=== PATIENT | female | born 1995 | race Caucasian/White ===

== ENCOUNTER 2017-02-14 02:44 | Emergency (ER) | payer OTHER ==
[~2017-02-14] VITALS: Ht 167.6 cm; Wt 70.0 kg
[2017-02-14 02:46] VITALS: BP 128/78; PULSE 78; RESP 20; TEMP 98.8; O2SAT 100
[2017-02-14] MEDS ORDERED: SODIUM CHLOR 0.9% 1000 ML INJ 1,000 ML IV ONE (05:31)
--- NOTE | 2017-02-14 05:33 | PD ---
HPI Chief Complaint: Related Problem Time Seen by Provider: 05:30 Travel History International Travel<30 days: No Contact w/Intl Traveler<30days: No Traveled to known affect area: No History of Present Illness HPI The patient is a 21 year old female at 13 weeks gestation who presents to the [facility] emergency department with a history of vomiting that recurred on Monday. She reports that throughout the up until a week ago she had had morning sickness, however she thought that it was improving until yesterday. Yesterday she had n/v x7. She also had diarrhea x1. She denies any blood in her emesis or blood in her stool. She had some vaginal spotting with cramping today. She had an Ultrasound at 10 and 1/2 weeks that confirmed an IUP and FH activity. She is unsure of her blood type. On review of systems otherwise she denies having any known recent fevers, cough, congestion, neck pain, chest pain, shortness of breath, urinary symptoms, or neurologic symptoms. LMP: beginning of November. [facility] Past Medical History Narrative Medical The patient's past medical history is significant for PCOS, history of anemia. Medical History: Denies Significant Hx Diminished Hearing: No Tetanus Vaccination: Unknown Influenza Vaccination: No ?: LMP: 13 WEEKS PREG/ 11/18/16 Past Surgical History Surgical History: No Previous Surgery Social History Alcohol Use: No Tobacco Use: No Substance Use: No Allergies-Medications (Allergen,Severity, Reaction): Coded Allergies: No Known Allergies (Unverified , 02/14/17) Reported Meds & Prescriptions Reported Meds & Active Scripts Active Zofran Odt (Ondansetron Odt) 4 Mg Tab 4 Mg SL Q6HR PRN Review of Systems Except as stated in HPI: all other systems reviewed are Neg General / Constitutional: No: Fever Eyes: No: Visual changes HENT: No: Headaches Cardiovascular: No: Chest Pain or Discomfort Respiratory: No: Shortness of Breath Gastrointestinal: Positive: Nausea, Vomiting, Diarrhea, Changes in Bowel Habits , No: Abdominal Pain, Hematemesis, Hematochezia, Indigestion Genitourinary: No: Dysuria Musculoskeletal: No: Pain Skin: No Rash Neurologic: No: Weakness Psychiatric: No: Depression Endocrine: No: Polydipsia Hematologic/Lymphatic: No: Easy Bruising Physical Exam Narrative General: The patient is a well-developed well-nourished female in no acute distress. Head and Neck exam: Head is normocephalic atraumatic. Eyes: Pupils are equal round and reactive to light. Nose: Midline septum with pink mucous membranes Mouth: Dentition unremarkable. Moist mucus membranes. Posterior oropharynx is not erythematous. No tonsillar hypertrophy. Uvula midline. Airway patent. Neck: No palpable lymphadenopathy. No nuchal rigidity. No thyromegaly. Cardiovascular: Regular rate and rhythm without murmurs, gallops, or rubs. Lungs: Clear to auscultation bilaterally. No wheezes, rhonchi, or rales. Abdomen: Soft, without tenderness to palpation in all 4 quadrants of the abdomen. No guarding, rebound, or rigidity. Normal bowel sounds are audible. No tenderness on palpation of McBurney's point. Extremities: No clubbing, cyanosis, or edema. No calf tenderness on palpation. Back: No costovertebral angle tenderness to palpation. Neurologic Exam: Grossly nonfocal. Skin Exam: No rash noted. Intact skin that is warm and dry. Gynecologic exam: The patient was placed in the dorsal lithotomy position. Her external genitalia were examined. She had no evidence of rash or lesions. The speculum was placed into her vagina and the cervix was identified. She had a physiologic appearing clear white discharge. No cervical friability. On Bimanual exam: she has no cervical motion tenderness. Her cervix is closed. No adnexal tenderness or prominence noted on palpation. No uterine tenderness on palpation, however she does have palpable uterine enlargement. Data Data Last Documented VS Vital Signs Date Time Temp Pulse Resp B/P (MAP) Pulse Ox O2 Delivery O2 Flow Rate FiO2 02/14/17 02:46 98.8 78 20 128/78 (95) 100 Orders Orders Beta Hcg (Quant/Titer) (02/14/17 05:31) Complete Blood Count With Diff (02/14/17 05:31) Comprehensive Metabolic Panel (02/14/17 05:31) Gc And Chlamydia Pcr (02/14/17 05:31) Complete Rh (02/14/17 05:31) Wet Prep Profile (02/14/17 05:31) Urinalysis - C+S If Indicated (02/14/17 05:31) Iv Access Insert/Monitor (02/14/17 05:31) Sodium Chlor 0.9% 1000 Ml Inj (Ns 1000 M (02/14/17 05:31) Ondansetron Inj (Zofran Inj) (02/14/17 05:45) Ed Poc Ultrasound (02/14/17 06:47) Labs Laboratory Tests Test 02/14/17 05:30 02/14/17 05:40 White Blood Count 13.1 TH/MM3 Red Blood Count 4.15 MIL/MM3 Hemoglobin 12.2 GM/DL Hematocrit 35.2 % Mean Corpuscular Volume 84.6 FL Mean Corpuscular Hemoglobin 29.3 PG Mean Corpuscular Hemoglobin Concent 34.7 % Red Cell Distribution Width 13.3 % Platelet Count 233 TH/MM3 Mean Platelet Volume 9.1 FL Neutrophils (%) (Auto) 64.0 % Lymphocytes (%) (Auto) 26.9 % Monocytes (%) (Auto) 7.6 % Eosinophils (%) (Auto) 1.1 % Basophils (%) (Auto) 0.4 % Neutrophils # (Auto) 8.4 TH/MM3 Lymphocytes # (Auto) 3.5 TH/MM3 Monocytes # (Auto) 1.0 TH/MM3 Eosinophils # (Auto) 0.1 TH/MM3 Basophils # (Auto) 0.0 TH/MM3 CBC Comment DIFF FINAL Differential Comment Urine Color YELLOW Urine Turbidity CLEAR Urine pH 5.5 Urine Specific [place] 1.025 Urine Protein TRACE mg/dL Urine Glucose (UA) NEG mg/dL Urine Ketones TRACE mg/dL Urine Occult Blood NEG Urine Nitrite NEG Urine Bilirubin NEG Urine Urobilinogen LESS THAN 2.0 MG/DL Urine Leukocyte Esterase NEG Urine RBC 1 /hpf Urine WBC 2 /hpf Urine Squamous Epithelial Cells 3 /hpf Urine Mucus FEW /lpf Microscopic Urinalysis Comment CULT NOT INDICATED Blood Urea Nitrogen 6 MG/DL Creatinine 0.57 MG/DL Random Glucose 73 MG/DL Total Protein 9.1 GM/DL Albumin 4.0 GM/DL Calcium Level 9.0 MG/DL Alkaline Phosphatase 67 U/L Aspartate Amino Transf (AST/SGOT) 59 U/L Alanine Aminotransferase (ALT/SGPT) 172 U/L Total Bilirubin 0.8 MG/DL Sodium Level 137 MEQ/L Potassium Level 3.6 MEQ/L Chloride Level 102 MEQ/L Carbon Dioxide Level 26.1 MEQ/L Anion Gap 9 MEQ/L Estimat Glomerular Filtration Rate 135 ML/MIN Human Chorionic Gonadotropin, Quant 98198 MIU/ML Clue Cells (Wet Prep) NONE SEEN Vaginal Trichomonas (Wet Prep) NONE SEEN Vaginal Yeast (Wet Prep) NONE SEEN MDM Medical Decision Making Medical Screen Exam Complete: Yes Emergency Medical Condition: Yes Medical Record Reviewed: Yes Differential Diagnosis Ectopic , versus ovarian cyst, versus subchorionic hemorrhage, versus postcoital bleeding, versus dehydration Narrative Course During the course of the patients emergency department visit, the patients history, examination, and differential diagnosis were reviewed with the patient. The patient was placed on a optical engineering manager with oximetry and frequent blood pressure monitoring. The patient had IV access obtained and blood work sent for analysis. The patient was initially provided normal saline 1 L IV fluid bolus, Zofran 4 mg IV. The patients laboratory studies were reviewed and remarkable for a white count of 13.1, hemoglobin 12.2, platelets 233 with a normal differential, CMP is remarkable for a glucose of 73, BUN 6, AST 59, ALT 172, total protein 9.1, quantitative beta hCG is 63,300, urinalysis shows trace ketones otherwise unremarkable, wet prep is negative. Blood type is O+. A bedside ultrasound was done by me and revealed heart activity rate of 145, active fetus on examination. No other acute abnormality. The patient will be discharged home with a prescription for Zofran for nausea. She has a follow-up appointment scheduled with her in flight crew member for February 28. The patient is resting comfortably and feels better, is alert and in no distress. The patients results and examination findings were discussed with the patient. The repeat examination is unremarkable and benign. The history, exam, diagnostic testing, and current condition do not suggest any significant pathology to warrant further testing, continued ED treatment, admission, or surgical evaluation at this point. The vital signs have been stable. The patient does not have uncontrollable pain, intractable vomiting, or other significant symptoms. The patient's condition is stable and appropriate for discharge. The patient will pursue further outpatient evaluation with a primary care physician or other designated or consulting physician as indicated in the discharge instructions. The patient expressed understanding and was agreeable with this plan. Diagnosis Primary Impression: Nausea/vomiting in Additional Impressions: Threatened miscarriage Elevated liver enzymes Referrals: Natalie Dickson MD 2 days Mail Officer 2 days Patient Instructions: General Instructions, Nausea and Vomiting in ( ED), Threatened Miscarriage (ED) Additional Instructions: The patient is instructed on bed rest and pelvic rest. She is instructed on importance of following up with an ENVELOPE MACHINE OPERATOR as soon as possible. The patient is noted to have on examination and elevated liver enzymes. She denies being aware of this from the past. She is given a copy of her liver function tests for follow-up with her public health aides teacher. Med/Other Pt SpecificInfo: Prescription(s) given Scripts Ondansetron Odt (Zofran Odt) 4 Mg Tab 4 MG SL Q6HR Y for Nausea/Vomiting, #7 TAB 0 Refills Prov: Ida Deluna MD 02/14/17 Disposition: 01 DISCHARGE HOME Condition: Stable Ida Deluna MD Feb 14, 2017 05:33
[2017-02-14] MEDS ORDERED: ONDANSETRON HCL 4 MG/2 ML VIAL IVP ONE (05:45)
[2017-02-14] MEDS ORDERED: ZOFR4TAB3 SL ×2 (05:51→07:05)
[2017-02-14 06:06] LABS: AUTOMATED NEUTROPHIL # 8.4 TH/MM3 (1.8-7.7); BASOPHIL % 0.4 % (0.0-2.0); EOSINOPHIL # 0.1 TH/MM3 (0-0.4); EOSINOPHIL % 1.1 % (0.0-4.0); HEMATOCRIT 35.2 % (35.0-46.0); HEMO FLAGS DIFF FINAL; LYMPH % 26.9 % (9.0-44.0); LYMPHOCYTE # 3.5 TH/MM3 (1.0-4.8); MEAN CELL VOLUME 84.6 FL (80.0-100.0); MEAN CORPUSCULAR HEMOGLOBIN 29.3 PG (27.0-34.0); MEAN CORPUSCULAR HGB CONC 34.7 % (32.0-36.0); MONO % 7.6 % (0.0-8.0); PLATELET COUNT 233 TH/MM3 (150-450); RED BLOOD COUNT 4.15 MIL/MM3 (4.00-5.30); RED CELL DISTRIBUTION WIDTH 13.3 % (11.6-17.2); WHITE BLOOD COUNT 13.1 TH/MM3 (4.0-11.0)
[2017-02-14 06:24] LABS: BLOOD, URINE NEG (NEG); COMMENT (UR) CULT NOT INDICATED; CULTURE IF INDICATED CULT NOT INDICATED; GLUCOSE,URINE NEG (NEG); KETONE, URINE TRACE mg/dL (NEG); MUCUS URINE FEW /lpf (OCC); NITRITE,URINE NEG (NEG); PH, URINE 5.5 (5.0-8.5); SQUAMOUS EPITHELIAL CELL URINE 3 /hpf (0-5); URINE COLOR YELLOW (YELLW/STRAW)
[2017-02-14 06:29] LABS: ANION GAP 9 MEQ/L (5-15); AST (GOT) 59 U/L (16-38); BICARBONATE 26.1 MEQ/L (21.0-32.0); BLOOD UREA NITROGEN 6 MG/DL (7-18); CHLORIDE 102 MEQ/L (98-107); GLOMERULAR FILTRATION RATE 135 ML/MIN (>89); POTASSIUM 3.6 MEQ/L (3.5-5.1); SODIUM (NA) 137 MEQ/L (136-145)
[2017-02-14 06:30] LABS: ALT (GPT) 172 U/L (9-42)
[2017-02-14 06:46] LABS: ALKALINE PHOSPHATASE 67 U/L (45-117); BETA HCG QUANT 63300 MIU/ML (0-5); TOTAL BILIRUBIN ADULT 0.8 MG/DL (0.2-1.0)
[2017-02-14 07:28] VITALS: BP 124/72
[2017-02-14 12:03] LABS: CHLAMYDIA PCR NOT DETECTED (NOT DETECT); NEISSERIA PCR NOT DETECTED (NOT DETECT)
== END 2017-02-14 07:28 | disposition home or self-care (01) ==
LOC: NEPC 02:44
DX: O21.9 Vomiting of pregnancy, unspecified (principal); O20.0 Threatened abortion; O26.891 Other specified pregnancy related conditions, first trimester; R19.7 Diarrhea, unspecified; R74.8 Abnormal levels of other serum enzymes; O99.281 Endocrine, nutritional and metabolic diseases complicating pregnancy, first trimester; E28.2 Polycystic ovarian syndrome; Z3A.13 13 weeks gestation of pregnancy
CPT/HCPCS: 80053; 81001; 84702; 85025; 86901; 87210; 87491; 87591; 96361; 96374; 99285; J2405; J7030

== ENCOUNTER 2017-07-27 14:01 | Inpatient (IN) | payer OTHER ==
[~2017-07-27] VITALS: Ht 165.1 cm; Wt 85.0 kg
[2017-07-27] VITALS (8 sets, daily range): BP systolic 115–134; BP diastolic 70–93; PULSE 69–90; RESP 15–18; TEMP 98.3–98.4
[~2017-07-27 14:01] MED LIST: METR1TAB76 PO; ZOFR4TAB3 SL
--- NOTE | 2017-07-27 14:52 | PD ---
HPI Chief Complaint Contractions and lower back pain Date Seen: July 27, 2017 Time Seen: 14:38 Travel History International Travel<30 Days: No Contact w/Intl Traveler<30Days: No History of Present Illness HPI Patient is a 22-year-old female G one P0 at 36/4 weeks gestation presenting to the OB triage due to complaints of contractions and lower abdominal pain. Patient stated that contractions started last night around 8 PM and they have gotten more intense and closer in frequency, contractions currently are occurring every 5 minutes. Denies any loss of fluid or vaginal bleeding. Patient reports she is GBS negative. Endorses movement. Patient also reports that she has had nausea and vomiting x10 this morning. Denies any fevers , chills, chest pain, shortness of breath, lower extremity swelling or vision issues. Patient follows with Dr. Rodriges. Weeks Gestation: 36 Para: 0 : 1 Last Menstrual Period: Nov 13, 2016 Miscarriage: 0 : 0 History Past Medical History Narrative Medical Depression Anxiety Obstetric History Obstetric History Patient reports she had a threatened earlier this year but everything was found to be okay No complication thus far with this Denies history of STDs. Past Surgical History Surgical History: No Previous Surgery Family History Narrative Family History CHF-paternal grandmother Social History Alcohol Use: No Tobacco Use: No Substance Abuse: Yes (Patient reports that she has used marijuana during the on and off when her nausea is very severe, about 1 g/week. Denies other illicit drug use. ) Allergies-Medications (Allergen,Severity, Reaction): Coded Allergies: No Known Allergies (Unverified , 02/14/17) Home Meds Active Scripts Metronidazole (Metronidazole) 500 Mg Tab, 500 MG PO BID for Infection for 7 Days , #14 TAB 0 Refills Prov:May Jaimes CNM 03/07/17 Ondansetron Odt (Zofran Odt) 4 Mg Tab, 4 MG SL Q6HR Y for Nausea/Vomiting, #7 TAB 0 Refills Prov:Ida Deluna MD 02/14/17 Ondansetron Odt (Zofran Odt) 4 Mg Tab, 4 MG SL Q6HR Y for Nausea/Vomiting, #7 TAB 0 Refills Prov:Ida Deluna MD 02/14/17 Narrative Medication Citalopram 25 mg daily vitamins Review of Systems Except as stated in HPI: all other systems reviewed are Neg (Per HPI) Physical Exam Vital Signs Date Time Temp Pulse Resp B/P (MAP) Pulse Ox O2 Delivery O2 Flow Rate FiO2 07/27/17 14:20 98.4 Narrative GENERAL: Well-nourished, well-developed patient. SKIN: Warm and dry. HEAD: Normocephalic and atraumatic. EYES: No scleral icterus. No injection or drainage. ENT: No nasal drainage noted. Mucous membranes pink. Airway patent. NECK: Supple, trachea midline. No JVD. CARDIOVASCULAR: Regular rate and rhythm without murmurs, gallops, or rubs. RESPIRATORY: Breath sounds equal bilaterally. No accessory muscle use. ABDOMEN/GI: Abdomen soft, non-tender, bowel sounds present, no rebound, no guarding Gravid to 36 weeks size GENITOURINARY: External Genitalia: intact and normal in appearance Cervix: Midposition Dilatation: 3-4 Effacement:40 Station: -2 Membranes: Bulging Uterine Contractions: [-] FHT's: Category:1 Baseline: 140 Reactive:yes Variability: moderate Decels: none EXTREMITIES: No cyanosis or edema. BACK: Nontender without obvious deformity. No CVA tenderness. NEUROLOGICAL: Awake and alert. Motor and sensory grossly within normal limits. Five out of 5 muscle strength in all muscle groups. Normal speech. Data Data Vital Signs Reviewed: Yes Orders Orders Vital Signs (Adult) .ON ADMISSION (07/27/17 14:14) ^ Labor Status (07/27/17 14:14) Urinalysis - C+S If Indicated (07/27/17 14:14) ^ Non Stress Test (07/27/17 14:14) Group B Strep: Negative MDM Medical Record Reviewed: Yes Plan Patient is a 22-year-old female G one P0 at 36/4 weeks gestation presenting to the OB triage due to complaints of contractions and lower abdominal pain. IUP at 36/4 weeks gestation 1. Monitor FHT for at least 20min 2. Reassess cervical change in 1-2hr to evaluate for labor 3. clear liquids 3. category 1, NST reassuring On repeat cervical check: 4-5cm dilated and 80% effaced patient will be admitted to L&D for labor DW Leonel Mclain MD, R1 July 27, 2017 14:52
[2017-07-27] MEDS ORDERED: LACTATED RINGER'S 1000 ML INJ 1,000 ML IV PRN (15:10)
[2017-07-27] MEDS ORDERED: LACTATED RINGER'S 1000 ML INJ 1,000 ML IV SCH (15:10)
--- NOTE | 2017-07-27 15:12 | HHI.HP ---
History & Physical H&P HPI Chief Complaint Contractions and lower back pain Date Seen: July 27, 2017 Time Seen: 14:38 Travel History International Travel<30 Days: No Contact w/Intl Traveler<30Days: No History of Present Illness HPI Patient is a 22-year-old female G one P0 at 36/4 weeks gestation presenting to the OB triage due to complaints of contractions and lower abdominal pain. Patient stated that contractions started last night around 8 PM and they have gotten more intense and closer in frequency, contractions currently are occurring every 5 minutes. Denies any loss of fluid or vaginal bleeding. Patient reports she is GBS negative. Endorses movement. Patient also reports that she has had nausea and vomiting x10 this morning. Denies any fevers , chills, chest pain, shortness of breath, lower extremity swelling or vision issues. Patient follows with Dr. Rodriges. Weeks Gestation: 36 Para: 0 : 1 Last Menstrual Period: Nov 13, 2016 Miscarriage: 0 : 0 History (Limited) History Past Medical History Narrative Medical Depression Anxiety Obstetric History Obstetric History Patient reports she had a threatened earlier this year but everything was found to be okay No complication thus far with this Denies history of STDs. Past Surgical History Surgical History: No Previous Surgery Family History Narrative Family History CHF-paternal grandmother Social History Alcohol Use: No Tobacco Use: No Substance Abuse: Yes (Patient reports that she has used marijuana during the on and off when her nausea is very severe, about 1 g/week. Denies other illicit drug use. ) Allergies-Medications Allergies-Medications (Allergen,Severity, Reaction): Coded Allergies: No Known Allergies (Unverified , 02/14/17) Home Meds Active Scripts Metronidazole (Metronidazole) 500 Mg Tab, 500 MG PO BID for Infection for 7 Days , #14 TAB 0 Refills Prov:May Jaimes CNM 03/07/17 Ondansetron Odt (Zofran Odt) 4 Mg Tab, 4 MG SL Q6HR Y for Nausea/Vomiting, #7 TAB 0 Refills Prov:Ida Deluna MD 02/14/17 Ondansetron Odt (Zofran Odt) 4 Mg Tab, 4 MG SL Q6HR Y for Nausea/Vomiting, #7 TAB 0 Refills Prov:Ida Deluna MD 02/14/17 Narrative Medication Citalopram 25 mg daily vitamins ROS Review of Systems Except as stated in HPI: all other systems reviewed are Neg (Per HPI) Physical Exam Physical Exam Vital Signs Date Time Temp Pulse Resp B/P (MAP) Pulse Ox O2 Delivery O2 Flow Rate FiO2 07/27/17 14:20 98.4 Narrative GENERAL: Well-nourished, well-developed patient. SKIN: Warm and dry. HEAD: Normocephalic and atraumatic. EYES: No scleral icterus. No injection or drainage. ENT: No nasal drainage noted. Mucous membranes pink. Airway patent. NECK: Supple, trachea midline. No JVD. CARDIOVASCULAR: Regular rate and rhythm without murmurs, gallops, or rubs. RESPIRATORY: Breath sounds equal bilaterally. No accessory muscle use. ABDOMEN/GI: Abdomen soft, non-tender, bowel sounds present, no rebound, no guarding Gravid to 36 weeks size GENITOURINARY: External Genitalia: intact and normal in appearance Cervix: Midposition Dilatation: 3-4 Effacement:40 Station: -2 Membranes: Bulging Uterine Contractions: [-] FHT's: Category:1 Baseline: 140 Reactive:yes Variability: moderate Decels: none EXTREMITIES: No cyanosis or edema. BACK: Nontender without obvious deformity. No CVA tenderness. NEUROLOGICAL: Awake and alert. Motor and sensory grossly within normal limits. Five out of 5 muscle strength in all muscle groups. Normal speech. Data Data Data Vital Signs Reviewed: Yes Orders Orders Vital Signs (Adult) .ON ADMISSION (07/27/17 14:14) ^ Labor Status (07/27/17 14:14) Urinalysis - C+S If Indicated (07/27/17 14:14) ^ Non Stress Test (07/27/17 14:14) Group B Strep: Negative MDM MDM Medical Record Reviewed: Yes Plan Patient is a 22-year-old female G one P0 at 36/4 weeks gestation presenting to the OB triage due to complaints of contractions and lower abdominal pain. IUP at 36/4 weeks gestation 1. Monitor FHT for at least 20min 2. Reassess cervical change in 1-2hr to evaluate for labor 3. clear liquids 3. category 1, NST reassuring On repeat cervical check: 4-5cm dilated and 80% effaced patient will be admitted to &D for labor DW Leonel Mclain MD, R1 July 27, 2017 15:12
[2017-07-27] MEDS ORDERED: OXYTOCIN 30 UNITS-500ML PREMIX 500 ML IV ONE (15:15)
[2017-07-27] MEDS ORDERED: CITRIC ACID-SODIUM CITRATE LIQ 30 ML UDC PO SCH (15:15)
[2017-07-27] MEDS ORDERED: LIDOCAINE HCL 1% 50 ML VIAL I-DERMAL PRN (15:15)
[2017-07-27] MEDS ORDERED: SODIUM CHLORID 0.9% 500 ML INJ 500 ML IV PRN (15:15)
[2017-07-27] MEDS ORDERED: ONDANSETRON HCL 4 MG/2 ML VIAL IV PUSH PRN (15:15)
[2017-07-27] MEDS ORDERED: MINERAL OIL 10 ML VIAL TOPICAL PRN (15:15)
[2017-07-27] MEDS ORDERED: LIDOCAINE HCL 1% 50 ML VIAL INFIL PRN (15:15)
[2017-07-27] MEDS ORDERED: SODIUM CHLOR 0.9% 1000 ML INJ 1,000 ML IV PRN (15:30)
[2017-07-27] MEDS ORDERED: CELE20TA PO (15:46)
[2017-07-27] MEDS ORDERED: TRICTAB PO (15:46)
[2017-07-27 16:16] LABS: AUTOMATED NEUTROPHIL # 11.7 TH/MM3 (1.8-7.7); BASOPHIL # 0.1 TH/MM3 (0-0.2); BASOPHIL % 0.9 % (0.0-2.0); EOSINOPHIL # 0.1 TH/MM3 (0-0.4); EOSINOPHIL % 0.4 % (0.0-4.0); HEMATOCRIT 34.3 % (35.0-46.0); HEMOGLOBIN 11.6 GM/DL (11.6-15.3); LYMPHOCYTE # 2.8 TH/MM3 (1.0-4.8); MEAN CELL VOLUME 87.7 FL (80.0-100.0); MEAN CORPUSCULAR HEMOGLOBIN 29.6 PG (27.0-34.0); MEAN CORPUSCULAR HGB CONC 33.7 % (32.0-36.0); MONO % 6.5 % (0.0-8.0); NEUT % 74.2 % (16.0-70.0); PLATELET COUNT 252 TH/MM3 (150-450); RED BLOOD COUNT 3.91 MIL/MM3 (4.00-5.30); RED CELL DISTRIBUTION WIDTH 13.2 % (11.6-17.2); WHITE BLOOD COUNT 15.7 TH/MM3 (4.0-11.0)
[2017-07-27 16:24] LABS: AMORPHOUS SEDIMENT, URINE RARE; BACTERIA, URINE RARE /hpf; BILIRUBIN, URINE NEG (NEG); BLOOD, URINE NEG (NEG); GLUCOSE,URINE NEG (NEG); KETONE, URINE 10 mg/dL (NEG); NITRITE,URINE NEG (NEG); PH, URINE 6.5 (5.0-8.5); SQUAMOUS EPITHELIAL CELL URINE 19 /hpf (0-5); URINE COLOR LIGHT-YELLOW (YELLW/STRAW); URINE LEUKOCYTE ESTERASE LARGE (NEG)
--- NOTE | 2017-07-27 21:30 | HHI.PR ---
REPRESENTATIVE Note Note Pt was admitted earlier for PTL with cervical change per RN from 3 to 5. She has received fentanyl x2 for pain and zofran x1 for emesis. Since admission, pt has been cat 1 tracing. Ctx ceased. Cvx exam was just performed by PM RN and confirmed myself to be 3.5/90/-2. Given status and not laboring, pt advised that she will be d/c'd to home. Labor precautions reviewed. She will receive 2g IV rocephin prior to d/c for UTI. Melanie Durán MD July 27, 2017 21:30
[2017-07-27] MEDS ORDERED: cefTRIAXone 2,000 MG/NS 100 ML IV ONE ×2 (22:30)
== END 2017-07-27 23:45 | disposition home or self-care (01) | DRG 778 ==
LOC: HOBED 14:01 → H2EB 15:15
PROVIDERS: ADMIT Obstetrics & Gynecology; ATTEND Obstetrics & Gynecology
DX: O60.03 Preterm labor without delivery, third trimester (principal); F32.9 Major depressive disorder, single episode, unspecified; Z3A.36 36 weeks gestation of pregnancy; F41.9 Anxiety disorder, unspecified; O99.343 Other mental disorders complicating pregnancy, third trimester
CPT/HCPCS: 80307; 81001; 84112; 85025; 86900; 86901; 87086; G0481; J3010; J7120

== ENCOUNTER 2017-07-28 17:50 | Inpatient (IN) | payer OTHER ==
[2017-07-28] VITALS (49 sets, daily range): BP systolic 109–138; BP diastolic 62–96; PULSE 66–97; RESP 15–20; TEMP 98.1–98.6; O2SAT 98–100
[~2017-07-28] VITALS: Ht 165.1 cm; Wt 84.8 kg
[~2017-07-28 17:50] MED LIST changes: +CELE20TA PO; +DIPHTH/TETANUS/ACEL PERTUSSIS (BOOSTER) 0.5 ML VIAL/PFS IM ONE; +MEASLES, MUMPS, RUBELLA VACCINE 0.5 ML VIAL SQ ONE; -METR1TAB76 PO; +TRICTAB PO
[2017-07-28] MEDS ORDERED: LACTATED RINGER'S 1000 ML INJ 1,000 ML IV PRN (18:27)
[2017-07-28] MEDS ORDERED: LACTATED RINGER'S 1000 ML INJ 1,000 ML IV SCH (18:27)
--- NOTE | 2017-07-28 18:27 | PD ---
HPI Chief Complaint Contractions Date Seen: July 28, 2017 Time Seen: 18:23 Travel History International Travel<30 Days: No Contact w/Intl Traveler<30Days: No Known Affected Area: No History of Present Illness HPI 22-year-old who is at 36 weeks and 5 days comes in complaining of contractions. Patient to come in yesterday afternoon and was 3-4 cm and was admitted but after 9 hours patient experienced no cervical change in her contractions had disappeared and she was discharged home. Patient states her contractions had not ever truly gone away but had improved but noticed worsening around noon today associated with some vaginal discharge. Patient denies vaginal bleeding is been having good movement. Patient is group B strep negative Weeks Gestation: 36 Para: 0 : 1 History Past Medical History Medical History: Denies Significant Hx Past Surgical History Surgical History: No Previous Surgery Family History Family History: Negative Social History Alcohol Use: No Tobacco Use: No Substance Abuse: Yes (Marijuana use for nausea vomiting early in otherwise denies any additional illicit drug use) Allergies-Medications (Allergen,Severity, Reaction): Coded Allergies: No Known Allergies (Unverified , 02/14/17) Home Meds Active Scripts Ondansetron Odt (Zofran Odt) 4 Mg Tab, 4 MG SL Q6HR Y for Nausea/Vomiting, #7 TAB 0 Refills Prov:Ida Deluna MD 02/14/17 Ondansetron Odt (Zofran Odt) 4 Mg Tab, 4 MG SL Q6HR Y for Nausea/Vomiting, #7 TAB 0 Refills Prov:Ida Deluna MD 02/14/17 Reported Medications Citalopram (Celexa) 20 Mg Tab, 25 MG PO DAILY for Control Depression, #30 TAB 0 Refills 07/27/17 Vit-Ferrous Fumarate () 27 Mg Iron-1 Mg Tab, 1 TAB PO DAILY for Nutritional Supplement, #30 TAB 0 Refills 07/27/17 Discontinued Scripts Metronidazole (Metronidazole) 500 Mg Tab, 500 MG PO BID for Infection for 7 Days , #14 TAB 0 Refills Prov:May Jaimes CNM 03/07/17 Review of Systems Except as stated in HPI: all other systems reviewed are Neg Physical Exam Narrative GENERAL: Well-nourished, well-developed patient. SKIN: Warm and dry. HEAD: Normocephalic and atraumatic. EYES: No scleral icterus. No injection or drainage. ENT: No nasal drainage noted. Mucous membranes pink. Airway patent. NECK: Supple, trachea midline. No JVD. CARDIOVASCULAR: Regular rate and rhythm without murmurs, gallops, or rubs. RESPIRATORY: Breath sounds equal bilaterally. No accessory muscle use. ABDOMEN/GI: Abdomen soft, non-tender, bowel sounds present, no rebound, no guarding Gravid to [-36] weeks size Fundal Height: [-] GENITOURINARY: External Genitalia: intact and normal in appearance BUS glands: [-] Normal Cervix: [-] Anterior Dilatation: [-] 5 cm Effacement: [-] 100% Station: [-] -1 Presentation: [-] Vertex Membranes: [intact or ruptured] intact with bulging membranes Uterine Contractions: [-] Every 5-6 minute FHT's: Category: [-] 1 Baseline: [-] 140 Reactive: [-] Moderate Variability: [-] Moderate Decels: [-] Absent EXTREMITIES: No cyanosis or edema. BACK: Nontender without obvious deformity. No CVA tenderness. NEUROLOGICAL: Awake and alert. Motor and sensory grossly within normal limits. Five out of 5 muscle strength in all muscle groups. Normal speech. Data Data Vital Signs Reviewed: Yes Group B Strep: Negative [facility] Medical Record Reviewed: Yes Plan 22-year-old who is at 36-37 weeks gestation in active labor Admit to labor and delivery Patient desires epidural she is group B strep negative Diagnosis Diagnosis: Primary Impression: 36 weeks gestation of Additional Impression: Irregular uterine contractions Yanira Corley MD July 28, 2017 18:27
[2017-07-28] MEDS ORDERED: SODIUM CHLORID 0.9% 500 ML INJ 500 ML IV PRN (18:30)
[2017-07-28] MEDS ORDERED: LIDOCAINE HCL 1% 50 ML VIAL INFIL PRN (18:30)
[2017-07-28] MEDS ORDERED: LIDOCAINE HCL 1% 50 ML VIAL I-DERMAL PRN (18:30)
[2017-07-28] MEDS ORDERED: ONDANSETRON HCL 4 MG/2 ML VIAL IV PUSH PRN (18:30)
[2017-07-28] MEDS ORDERED: OXYTOCIN 30 UNITS-500ML PREMIX 500 ML IV ONE (18:30)
[2017-07-28] MEDS ORDERED: CITRIC ACID-SODIUM CITRATE LIQ 30 ML UDC PO SCH (18:30)
[2017-07-28] MEDS ORDERED: MINERAL OIL 10 ML VIAL TOPICAL PRN (18:30)
[2017-07-28] MEDS ORDERED: SODIUM CHLOR 0.9% 1000 ML INJ 1,000 ML IV PRN (18:47)
[2017-07-28 19:13] LABS: AUTOMATED NEUTROPHIL # 11.5 TH/MM3 (1.8-7.7); BASOPHIL % 0.3 % (0.0-2.0); EOSINOPHIL % 0.3 % (0.0-4.0); HEMATOCRIT 32.3 % (35.0-46.0); HEMOGLOBIN 11.2 GM/DL (11.6-15.3); LYMPH % 17.9 % (9.0-44.0); LYMPHOCYTE # 2.8 TH/MM3 (1.0-4.8); MEAN CELL VOLUME 87.8 FL (80.0-100.0); MEAN CORPUSCULAR HEMOGLOBIN 30.5 PG (27.0-34.0); MEAN CORPUSCULAR HGB CONC 34.8 % (32.0-36.0); MEAN PLATELET VOLUME 9.6 FL (7.0-11.0); MONO % 6.9 % (0.0-8.0); MONOCYTE # 1.1 TH/MM3 (0-0.9); NEUT % 74.6 % (16.0-70.0); PLATELET COUNT 249 TH/MM3 (150-450); RED BLOOD COUNT 3.68 MIL/MM3 (4.00-5.30); WHITE BLOOD COUNT 15.4 TH/MM3 (4.0-11.0)
[2017-07-28] MEDS ORDERED: fentaNYL 2MCG-BUPIV 0.125% INJ 100 ML ONE (19:25)
[2017-07-28] MEDS ORDERED: BUPIVACAINE HCL PF 0.25% 10 ML VIAL ONE ×2 (19:41→23:00)
[2017-07-28] MEDS ORDERED: NO SYSTEM NARCOTICS PRN (20:30)
[2017-07-28] MEDS ORDERED: DO NOT ADMINISTER ANTICOAGULANTS PRN (20:30)
[2017-07-28] MEDS ORDERED: fentaNYL 2MCG-BUPIV 0.125% 100 ML EPIDURAL PRN (20:30)
[2017-07-28] MEDS ORDERED: ePHEDrine/NS 25 MG/5 ML SYRINGE IV PUSH PRN (20:30)
[2017-07-28] MEDS ORDERED: OXYTOCIN 30 UNITS-500ML PREMIX 500 ML IV PRN (21:00)
--- NOTE | 2017-07-28 21:18 | HHI.HP ---
HPI Chief Complaint contractions Date Seen: July 28, 2017 Travel History International Travel<30 Days: No Contact w/Intl Traveler<30Days: No Known Affected Area: No History of Present Illness HPI Ms. Alvarez is a 22yo at 36/5 weeks gestations presenting for contractions. She was admitted yesterday for labor, but was discharged after no cervical change. Pt states that she had worsening contractions this afternoon and decided to come into the hospital. No vaginal bleeding, she is feeling the baby move. Weeks Gestation: 36 Para: 0 : 1 History Past Medical History Medical History: Denies Significant Hx Obstetric History Obstetric History Past Surgical History Surgical History: No Previous Surgery Family History Family History: Negative Social History Alcohol Use: No Tobacco Use: No Substance Abuse: No (marijuana earlier in ) Allergies-Medications (Allergen,Severity, Reaction): Coded Allergies: No Known Allergies (Unverified , 02/14/17) Home Meds Reported Medications Citalopram (Celexa) 20 Mg Tab, 25 MG PO DAILY for Control Depression, #30 TAB 0 Refills 07/27/17 Vit-Ferrous Fumarate () 27 Mg Iron-1 Mg Tab, 1 TAB PO DAILY for Nutritional Supplement, #30 TAB 0 Refills 07/27/17 Discontinued Scripts Ondansetron Odt (Zofran Odt) 4 Mg Tab, 4 MG SL Q6HR Y for Nausea/Vomiting, #7 TAB 0 Refills Prov:Ida Deluna MD 02/14/17 Ondansetron Odt (Zofran Odt) 4 Mg Tab, 4 MG SL Q6HR Y for Nausea/Vomiting, #7 TAB 0 Refills Prov:Ida Deluna MD 02/14/17 Metronidazole (Metronidazole) 500 Mg Tab, 500 MG PO BID for Infection for 7 Days , #14 TAB 0 Refills Prov:May Jaimes CNM DIRECTOR OF SALES 03/07/17 Review of Systems Except as stated in HPI: all other systems reviewed are Neg Physical Exam Vital Signs Date Time Temp Pulse Resp B/P (MAP) Pulse Ox O2 Delivery O2 Flow Rate FiO2 07/28/17 20:21 78 109/66 (80) 07/28/17 20:20 79 07/28/17 20:20 78 99 07/28/17 20:15 79 100 5/18/18 20:15 80 122/75 (91) 518/18 20:15 77 5/18/18 20:12 78 115/71 (86) 518/18 20:11 83 116/75 (89) 518/18 20:10 100 5/18/18 20:10 87 5/18/18 20:10 84 5/18/18 20:09 91 126/77 (93) 1818 20:08 87 124/78 (93) 18 20:05 100 518/18 20:05 83 124/74 (91) 07/28/18 20:05 85 5/18/18 20:05 86 518 20:00 96 134/92 (106) 18 20:00 100 18/18 20:00 97 5/18/18 20:00 88 518/18 19:55 94 134/94 (107) 100 18/18 19:55 97 18/18 19:55 95 18/18 19:50 91 136/96 (109) 100 518/18 19:50 90 5/18/18 19:50 83 518/18 19:45 97 5/18/18 19:45 97 136/82 (100) 100 18/18 19:45 85 5/18/18 19:40 95 5/18/18 19:35 89 5/18/18 19:30 96 5/18/18 19:25 73 5/18/18 19:20 85 518/18 19:15 86 518/18 19:10 81 518/18 19:05 83 5/18/18 19:00 83 5/18/18 18:58 98.1 20 18/18 18:50 96 5/18/18 18:45 87 5/18/18 18:40 90 5/18/18 18:35 88 5/18/18 18:30 92 5/18/18 18:25 90 5/18/18 18:20 94 5/18/18 18:08 93 127/81 (96) Narrative GENERAL: Well-nourished, well-developed patient. SKIN: Warm and dry. HEAD: Normocephalic and atraumatic. EYES: No scleral icterus. No injection or drainage. ENT: No nasal drainage noted. Mucous membranes pink. Airway patent. NECK: Supple, trachea midline. No JVD. CARDIOVASCULAR: Regular rate and rhythm without murmurs, gallops, or rubs. RESPIRATORY: Breath sounds equal bilaterally. No accessory muscle use. BREASTS: Bilateral exam showed no masses , no retractions, no nipple discharge. ABDOMEN/GI: Abdomen soft, non-tender, bowel sounds present, no rebound, no guarding Gravid to 36 weeks size GENITOURINARY: External Genitalia: intact and normal in appearance Cervix: midline Dilatation: 5cm Effacement: 100 Station: -1 Presentation: vertex Membranes: intact with bulging membranes Uterine Contractions: q5-6min FHT's: Category: 1 Baseline: 140 Reactive: moderate Variability: moderate Decels: none EXTREMITIES: No cyanosis or edema. BACK: Nontender without obvious deformity. No CVA tenderness. NEUROLOGICAL: Awake and alert. Motor and sensory grossly within normal limits. Five out of 5 muscle strength in all muscle groups. Normal speech. Caprini VTE Risk Assessment Caprini VTE Risk Assessment: Mod/High Risk (score >= 2) Caprini Risk Assessment Model Point Value = 1 Point Value = 2 Point Value = 3 Point Value = 5 Age 41-60 Minor surgery BMI > 25 kg/m2 Swollen legs Varicose veins or History of unexplained or recurrent spontaneous Oral contraceptives or hormone replacement Sepsis (< 1 month) Serious lung disease, including pneumonia (< 1 month) Abnormal pulmonary function Acute myocardial infarction Congestive heart failure (< 1 month) History of inflammatory bowel disease Medical patient at bed rest Age 61-74 Arthroscopic surgery Major open surgery (> 45 min) Laparoscopic surgery (> 45 min) Malignancy Confined to bed (> 72 hours) Immobilizing plaster cast Central venous access Age >= 75 History of VTE Family history of VTE Factor V Leiden Prothrombin [id number] Lupus anticoagulant Anticardiolipin antibodies Elevated serum homocysteine Heparin-induced thrombocytopenia Other congenital or acquired thrombophilia Stroke (< 1 month) Elective arthroplasty Hip, pelvis, or leg fracture Acute spinal cord injury (< 1 month) Prophylaxis Regimen Total Risk Factor Score Risk Level Prophylaxis Regimen 0-1 Low Early ambulation 2 Moderate Order ONE of the following: *Sequential Compression Device (SCD) *Heparin 5000 units SQ BID 3-4 Higher Order ONE of the following medications: *Heparin 5000 units SQ TID *Enoxaparin/Lovenox 40 mg SQ daily (WT < 150 kg, CrCl > 30 mL/min) *Enoxaparin/Lovenox 30 mg SQ daily (WT < 150 kg, CrCl > 10-29 mL/min) *Enoxaparin/Lovenox 30 mg SQ BID (WT < 150 kg, CrCl > 30 mL/min) AND/OR *Sequential Compression Device (SCD) 5 or more Highest Order ONE of the following medications: *Heparin 5000 units SQ TID (Preferred with Epidurals) *Enoxaparin/Lovenox 40 mg SQ daily (WT < 150 kg, CrCl > 30 mL/min) *Enoxaparin/Lovenox 30 mg SQ daily (WT < 150 kg, CrCl > 10-29 mL/min) *Enoxaparin/Lovenox 30 mg SQ BID (WT < 150 kg, CrCl > 30 mL/min) AND *Sequential Compression Device (SCD) Data Data Orders Orders Ob (2e) Additional Admit Info (07/28/17 18:26) Admit To Inpatient (07/28/17 ) Vital Signs (Adult) .Per protocol (07/28/17 18:27) Heart (07/28/17 18:27) Amnioinfusion (07/28/17 18:) Urinary Catheter Management .ONCE (07/28/17 18:27) Diet Liquid (07/28/17 Dinner) Lactated Ringer's 1000 Ml Inj (Lr 1000 M (07/28/17 18:27) Lactated Ringer's 1000 Ml Inj (Lr 1000 M (07/28/17 18:27) Sodium Chlorid 0.9% 500 Ml Inj (Ns 500 M (07/28/17 18:30) Sodium Chlor 0.9% 1000 Ml Inj (Ns 1000 M (07/28/17 18:47) Lidocaine 1% Inj (50 Ml) (Xylocaine 1% I (07/28/17 18:30) Citric Acid-Sodium Citrate Liq (Bicitra (07/28/17 18:30) Ondansetron Inj (Zofran Inj) (07/28/17 18:30) Fentanyl Inj (Fentanyl Inj) (07/28/17 18:30) Fentanyl Inj (Fentanyl Inj) (07/28/17 18:30) Complete Blood Count With Diff (07/28/17 18:27) Hold Clot (07/28/17 18:27) Abo/Rh Blood Type (07/28/17 18:27) Ob/Psych Drug Screen, Urine (07/28/17 18:27) Resp Oxygen Non Rebreathe Mask (07/28/17 ) ^ Epidural / Intrathecal Infus (07/28/17 18:27) Oxytocin 30 Units-500ml Premix (Pitocin (07/28/17 18:30) Lidocaine 1% Inj (50 Ml) (Xylocaine 1% I (07/28/17 18:30) Light Mineral Oil (Muri-Lube Oil) (07/28/17 18:30) Inpatient Certification (07/28/17 ) Fentanyl 2mcg-Bupiv 0.125% Inj (Fentanyl (07/28/17 19:25) Ephedrine Inj (Ephedrine Inj) (07/28/17 19:25) Bupivacaine Pf 0.25% Inj (Marcaine Pf 0. (07/28/17 19:41) Ephedrine Inj (Ephedrine Inj) (07/28/17 19:41) ^ Place On Chart (07/28/17 ) ^ Medication Indications (07/28/17 ) Consent (07/28/17 ) ^ No Systemic Narcotics (07/28/17 ) ^ Call Anesthesiologist (07/28/17 ) ^ Discontinue Epidural Cathete (07/28/17 ) Anticoagulant Alert (07/28/17 ) ^ Epidural Alert (07/28/17 ) Nursing Information ([facility] (07/28/17 20:30) Nursing Information ([facility] (07/28/17 20:30) Fentanyl Inj (Fentanyl Inj) (07/28/17 20:30) Fentanyl 2mcg-Bupiv 0.125% Inj (Fentanyl (07/28/17 20:30) Ephedrine/Ns 25 Mg/5 Ml Syr (Ephedrine/N (07/28/17 20:30) ^ Non Stress Test (07/28/17 20:55) Response To Medication .Post New Med Administration, Reaction (07/28/17 20:55) ^ Discontinue Medication (07/28/17 20:55) Oxytocin 30 Units-500ml Premix (Pitocin (07/28/17 21:00) Labs Laboratory Tests Test 07/28/17 18:30 07/28/17 18:40 Urine Opiates Screen NEG Urine Barbiturates Screen NEG Urine Amphetamines Screen NEG Urine Benzodiazepines Screen NEG Urine Cocaine Screen NEG Urine Cannabinoids Screen POS White Blood Count 15.4 Red Blood Count 3.68 Hemoglobin 11.2 Hematocrit 32.3 Mean Corpuscular Volume 87.8 Mean Corpuscular Hemoglobin 30.5 Mean Corpuscular Hemoglobin Concent 34.8 Red Cell Distribution Width 13.0 Platelet Count 249 Mean Platelet Volume 9.6 Neutrophils (%) (Auto) 74.6 Lymphocytes (%) (Auto) 17.9 Monocytes (%) (Auto) 6.9 Eosinophils (%) (Auto) 0.3 Basophils (%) (Auto) 0.3 Neutrophils # (Auto) 11.5 Lymphocytes # (Auto) 2.8 Monocytes # (Auto) 1.1 Eosinophils # (Auto) 0.0 Basophils # (Auto) 0.0 CBC Comment DIFF FINAL Differential Comment Assessment/Plan Problem List: (1) 36 weeks gestation of ICD Codes: Z3A.36 - 36 weeks gestation of Status: Acute Assessment and Plan 22-year-old who is at 36-37 weeks gestation in active labor Admit to labor and delivery Patient desires epidural she is group B strep negative Estrellita Boykin MD R1 July 28, 2017 21:18
--- NOTE | 2017-07-28 21:22 | PD.LABORPN ---
Subjective Subjective Patient states that she is doing well and is comfortable after receiving her epidural. No complaints. Objective Vital Signs Vital Signs Date Time Temp Pulse Resp B/P (MAP) Pulse Ox O2 Delivery O2 Flow Rate FiO2 07/28/17 20:21 78 109/66 (80) 18 20:20 79 18 20:20 78 99 18 20:15 79 100 18 20:15 80 122/75 (91) 07/28/17 20:15 77 07/28/17 20:12 78 115/71 (86) 18 20:11 83 116/75 (89) 07/28/17 20:10 100 07/28/17 20:10 87 07/28/17 20:10 84 07/28/17 20:09 91 126/77 (93) 18 20:08 87 124/78 (93) 07/28/17 20:05 100 18 20:05 83 124/74 (91) 07/28/17 20:05 85 07/28/17 20:05 86 18 20:00 96 134/92 (106) 07/28/17 20:00 100 18 20:00 97 18 20:00 88 18 19:55 94 134/94 (107) 100 18 19:55 97 18 19:55 95 18 19:50 91 136/96 (109) 100 18 19:50 90 18 19:50 83 18 19:45 97 1818 19:45 97 136/82 (100) 100 18/18 19:45 85 18/18 19:40 95 18/18 19:35 89 18/18 19:30 96 18/18 19:25 73 18/18 19:20 85 18/18 19:15 86 18/18 19:10 81 18/18 19:05 83 1818 19:00 83 07/28/18 18:58 98.1 20 18 18:50 96 07/28/18 18:45 87 18/18 18:40 90 07/28/17 18:35 88 07/28/17 18:30 92 07/28/17 18:25 90 07/28/17 18:20 94 07/28/17 18:08 93 127/81 (96) Objective Pelvic Exam: Cervix: midline Dilatation: 5cm Effacement: 100% Station: -1 Presentation: vertex Membranes: AROM achieved Uterine Contractions: q5min FHT's: Category: 1 Baseline: 130s Reactive: yes Variability: moderate Decels: none Weeks Gestation: 36 Assessment/Plan Problem List: (1) 36 weeks gestation of ICD Codes: Z3A.36 - 36 weeks gestation of Status: Acute Assessment and Plan 22-year-old at 36/5 weeks gestation FHT category 1 Cervix unchanged /-1 Patient received epidural. AROM achieved IUPC placed Will start Estrellita Shah MD R1 July 28, 2017 21:22
[2017-07-28] MEDS ORDERED: LIDOCAINE HCL 1% PF 30 ML VIAL ONE (23:05)
[2017-07-28] MEDS ORDERED: oxyCODONE/ACETAMINOPHEN 5 MG/325 MG TAB PO PRN ×2 (23:30)
[2017-07-28] MEDS ORDERED: ACETAMINOPHEN 325 MG TAB PO PRN (23:30)
[2017-07-28] MEDS ORDERED: DOCUSATE SODIUM 50 MG/SENNA 8.6 MG TAB PO PRN (23:30)
[2017-07-28] MEDS ORDERED: SODIUM CHLORIDE 0.9% FLUSH 10 ML FLUSH IV FLUSH PRN (23:30)
[2017-07-28] MEDS ORDERED: OXYTOCIN 30 UNITS-500ML PREMIX 500 ML IV SCH (23:30)
[2017-07-28] MEDS ORDERED: ALUMINUM/MAGNESIUM/SIMETH 30 ML CUP PO PRN (23:30)
[2017-07-28] MEDS ORDERED: ZOLPIDEM TARTRATE 5 MG TAB PO PRN (23:30)
[2017-07-28] MEDS ORDERED: ONDANSETRON ODT 4 MG TAB PO PRN (23:30)
[2017-07-28] MEDS ORDERED: SODIUM CHLORIDE 0.9% FLUSH 10 ML FLUSH IV FLUSH SCH (23:30)
--- NOTE | 2017-07-28 23:34 | PD.OB.DELI ---
Weeks gestation: 36 Pt started active labor?: Yes Anesthesia: Epidural Episiotomy: None Vaginal Delivery: Normal, Spontaneous Presentation: Occiput anterior, Vertex Nuchal Cord: None Delayed cord clamping (45 sec): Yes : Female Delivery date: July 28, 2017 Delivery time: 23:08 One Minute : 8 Five Minute : 8 Placenta: Spontaneous delivery, Intact Laceration: Vaginal laceration, 2 deg Repair: Chromic running Estimated blood loss: 300 Yanira Corley MD July 28, 2017 23:34
[2017-07-29] VITALS (9 sets, daily range): BP systolic 118–131; BP diastolic 68–83; PULSE 66–80; RESP 18–20; TEMP 97.6–98.4; O2SAT 95–99
[2017-07-29] MEDS: IBUPROFEN 800 MG TAB PO PRN ×2 (00:13→16:41)
[2017-07-29] MEDS: BENZOCAINE 20% TOPICAL SPRAY 60 ML CAN TOPICAL PRN (02:20)
[2017-07-29] MEDS: WITCH HAZEL 50%/GLYCERIN 12.5% 40 PAD JAR TOPICAL PRN (02:20)
--- NOTE | 2017-07-29 08:45 | HHI.OB ---
Subjective Post Day: 1 Remarks Patient seen and examined this morning. AFVSS overnight. day #1. Patient states her pain is well controlled. Decreased lochia. Denies dysuria. No breast tenderness. Appetite good. No nausea or vomiting. Ambulating well. Denies fevers or chills, calf pain, shortness of breath, or cough. She otherwise has no other complaints or concerns this morning. Objective Vitals/I&O Vital Signs Date Time Temp Pulse Resp B/P (MAP) Pulse Ox O2 Delivery O2 Flow Rate FiO2 07/29/17 08:00 97.6 66 20 131/83 (99) 95 07/29/17 02:03 98.4 74 18 130/81 (97) 07/29/17 01:15 71 123/72 (89) 07/29/17 01:00 70 118/71 (87) 07/29/17 00:45 80 119/68 (85) 07/29/17 00:30 74 122/78 (93) 07/29/17 00:16 71 121/74 (90) 07/29/17 00:00 69 131/83 (99) 07/28/17 23:46 80 133/71 (91) 07/28/17 23:45 18 98 07/28/17 23:45 98.6 07/28/17 23:32 85 138/78 (98) 07/28/17 23:16 96 124/63 (83) 07/28/17 22:30 74 114/62 (79) 07/28/17 22:16 77 115/70 (85) 07/28/17 22:00 98.3 66 15 133/83 (100) 07/28/17 21:45 66 135/87 (103) 07/28/17 21:30 69 134/81 (98) 07/28/17 21:16 75 136/78 (97) 07/28/17 21:01 71 130/85 (100) 07/28/17 20:50 84 07/28/17 20:50 100 07/28/17 20:45 99 07/28/17 20:45 83 07/28/17 20:45 84 127/80 (96) 07/28/17 20:45 82 07/28/17 20:40 80 07/28/17 20:40 81 5/18/18 20:40 99 5/18/18 20:36 87 117/84 (95) 518/18 20:35 87 5/18/18 20:35 84 5/18/18 20:35 98 5/18/18 20:30 99 5/18/18 20:30 84 127/83 (98) 18/18 20:30 83 5/18/18 20:30 82 518/18 20:25 78 518/18 20:25 81 518/18 20:25 82 126/76 (93) 18/18 20:25 98 5/18/18 20:21 78 109/66 (80) 07/28/18 20:20 79 518/18 20:20 78 99 18/18 20:15 79 100 18/18 20:15 80 122/75 (91) 07/28/18 20:15 77 518/18 20:12 78 115/71 (86) 07/28/18 20:11 83 116/75 (89) 07/28/18 20:10 100 18/18 20:10 87 18/18 20:10 84 518/18 20:09 91 126/77 (93) 18/18 20:08 87 124/78 (93) 07/28/18 20:05 100 18/18 20:05 83 124/74 (91) 07/28/18 20:05 85 18/18 20:05 86 18/18 20:00 96 134/92 (106) 18/18 20:00 100 18/18 20:00 97 5/18/18 20:00 88 5/18/18 19:55 94 134/94 (107) 100 18/18 19:55 97 5/18/18 19:55 95 18/18 19:50 91 136/96 (109) 100 18/18 19:50 90 518/18 19:50 83 5/18/18 19:45 97 5/18/18 19:45 97 136/82 (100) 100 18/18 19:45 85 5/18/18 19:40 95 5/18/18 19:35 89 518/18 19:30 96 5/18/18 19:25 73 07/28/17 19:20 85 07/28/17 19:15 86 07/28/17 19:10 81 07/28/17 19:05 83 07/28/17 19:00 83 07/28/17 18:58 98.1 20 07/28/17 18:50 96 07/28/17 18:45 87 07/28/17 18:40 90 07/28/17 18:35 88 07/28/17 18:30 92 07/28/17 18:25 90 07/28/17 18:20 94 07/28/17 18:08 93 127/81 (96) Objective Remarks GENERAL: Well-nourished, well-developed patient. CARDIOVASCULAR: Regular rate and rhythm without murmurs, gallops, or rubs. RESPIRATORY: Breath sounds equal bilaterally. No accessory muscle use. ABDOMEN/GI: Abdomen soft, non-tender. Fundus: Firm, non-tender at umbilicus. GENITOURINARY: Light to moderate bleeding. EXTREMITIES: No cyanosis or edema, non-tender, without signs of DVT. Medications and IVs Current Medications Medications (Trade) Dose Ordered Sig/Yoav Route Start Time Stop Time Status Last Admin (NS Flush) 2 ml BID IV FLUSH 07/28/17 23:30 07/29/17 00:00 (NS Flush) 2 ml UNSCH PRN IV FLUSH 07/28/17 23:30 (Tylenol) 650 mg Q4H PRN PO 07/28/17 23:30 (Motrin) 800 mg Q8H PRN PO 07/28/17 23:30 07/29/17 00:13 (Percocet 5-325 Mg) 1 tab Q4H PRN PO 07/28/17 23:30 (Percocet 5-325 Mg) 2 tab Q4H PRN PO 07/28/17 23:30 (Americaine 20% Top Spr) 1 spray Q4H PRN TOPICAL 07/28/17 23:30 07/29/17 02:20 (Tucks Pads) 1 applic QID PRN TOPICAL 07/28/17 23:30 07/29/17 02:20 (Selena-Colace) 2 tab Q12H PRN PO 07/28/17 23:30 (Ambien) 5 mg HS PRN PO 5/18/18 23:30 (Mag-Al Plus Susp Liq) 15 ml Q8H PRN PO 07/28/17 23:30 (Zofran Odt) 4 mg Q6H PRN PO 07/28/17 23:30 Assessment/Plan Problem List: (1) care following vaginal delivery ICD Codes: Z39.2 - Encounter for routine follow-up Assessment and Plan 22 year old PPD#1. 1. Care - AFVSS - Encouraged OOB, as tolerated - Motrin or Percocet prn pain - Advised pelvic rest x 6 weeks - Contraception: Discussed with patient this morning, patient is desiring OCPs and will follow up with her outpatient provider - Will f/u with OB provider within 6 weeks romie Corley Discharge Planning Anticipate discharge tomorrow pending stable clinical course Naseem Lao MD R2 July 29, 2017 08:45
[2017-07-30] MEDS: IBUPROFEN 800 MG TAB PO PRN ×2 (01:45→15:30)
[2017-07-30] MEDS ORDERED: NORE0.354 PO (08:10)
[2017-07-30] MEDS ORDERED: IBUP1TAB7 PO (08:10)
--- NOTE | 2017-07-30 08:11 | HHI.DCPOC ---
Discharge Care Plan Diagnosis: (1) Normal vaginal delivery (2) care following vaginal delivery Report Symptoms to Your Doctor -Temperature above 100.5 degrees -Redness, of incision or excessive or foul smelling drainage -Unusual pain or calf pain -Increased vaginal bleeding -Painful or difficulty urinating -Feelings of extreme sadness or anxiety after 2 weeks Goals to Promote Your Health * To prevent worsening of your condition and complications * To maintain your health at the optimal level Directions to Meet Your Goals Take your medications as prescribed Follow your dietary instruction Follow activity as directed Ensure plenty of rest for recovery Drink fluids for hydration Keep your appointments as scheduled Take your immunizations and boosters as scheduled If your symptoms worsen call your PCP, if no PCP go to Urgent Care Center or Emergency Room Smoking is Dangerous to Your Health. Avoid second hand smoke Call the 24-hour crisis hotline for domestic abuse at Momo Mcpherson MD R2 July 30, 2017 08:11
--- NOTE | 2017-07-30 08:14 | HHI.OB ---
Subjective Remarks 22 yo who is PPD 2 s/p at 36/5 weeks gestation. Tolerating diet without N/V. Ambulating without difficulty. VB improving, no clots. No CP/SOB or calf pain. Objective Vitals/I&O Vital Signs Date Time Temp Pulse Resp B/P (MAP) Pulse Ox O2 Delivery O2 Flow Rate FiO2 07/29/17 20:00 97.8 73 18 127/74 (91) 99 Objective Remarks GENERAL: Well-nourished, well-developed patient. CARDIOVASCULAR: Regular rate and rhythm without murmurs, gallops, or rubs. RESPIRATORY: Breath sounds equal bilaterally. No accessory muscle use. ABDOMEN/GI: Abdomen soft, non-tender. Fundus: Firm, non-tender at 2 cm below umbilicus. GENITOURINARY: Light to moderate bleeding. EXTREMITIES: No cyanosis or edema, non-tender, without signs of DVT. Medications and IVs Current Medications Medications (Trade) Dose Ordered Sig/Yoav Route Start Time Stop Time Status Last Admin (NS Flush) 2 ml BID IV FLUSH 07/28/17 23:30 07/29/17 00:00 (NS Flush) 2 ml UNSCH PRN IV FLUSH 07/28/17 23:30 (Tylenol) 650 mg Q4H PRN PO 07/28/17 23:30 (Motrin) 800 mg Q8H PRN PO 07/28/17 23:30 07/30/17 01:45 (Percocet 5-325 Mg) 1 tab Q4H PRN PO 07/28/17 23:30 (Percocet 5-325 Mg) 2 tab Q4H PRN PO 07/28/17 23:30 (Americaine 20% Top Spr) 1 spray Q4H PRN TOPICAL 07/28/17 23:30 07/29/17 02:20 (Tucks Pads) 1 applic QID PRN TOPICAL 07/28/17 23:30 07/29/17 02:20 (Selena-Colace) 2 tab Q12H PRN PO 07/28/17 23:30 (Ambien) 5 mg HS PRN PO 07/28/17 23:30 (Mag-Al Plus Susp Liq) 15 ml Q8H PRN PO 07/28/17 23:30 (Zofran Odt) 4 mg Q6H PRN PO 07/28/17 23:30 Assessment/Plan Problem List: (1) care following vaginal delivery ICD Codes: Z39.2 - Encounter for routine follow-up Assessment and Plan 22 year old PPD#2. - AFVSS - Encouraged OOB, as tolerated - Motrin prn pain - Advised pelvic rest x 6 weeks - Contraception: Discussed with patient this morning, patient is desiring OCPs. Will give Jaz-35 on D/C. Pt to f/u with PCP Dr. Almonte. - Will f/u with OB provider within 6 weeks Discharge Planning Home today Mmoo Mcpherson MD R2 July 30, 2017 08:14
[2017-07-30] MEDS: WITCH HAZEL 50%/GLYCERIN 12.5% 40 PAD JAR TOPICAL PRN (15:32)
[2017-07-30] MEDS: BENZOCAINE 20% TOPICAL SPRAY 60 ML CAN TOPICAL PRN (15:32)
== END 2017-07-30 18:31 | disposition home or self-care (01) | DRG 775 ==
LOC: HOBED 17:50 → H2EA 18:30 → H1EA 07-29 01:52
PROVIDERS: ADMIT Obstetrics & Gynecology Obstetrics; ATTEND Obstetrics & Gynecology Obstetrics
PROC: 10E0XZZ Delivery of Products of Conception, External Approach (ICD-10-PCS; principal; 2017-07-28)
PROC: 3E0S3BZ Introduction of Anesthetic Agent into Epidural Space, Percutaneous Approach (ICD-10-PCS; 2017-07-28)
PROC: 0KQM0ZZ Repair Perineum Muscle, Open Approach (ICD-10-PCS; 2017-07-28)
DX: O60.14X0 Preterm labor third trimester with preterm delivery third trimester, not applicable or unspecified (principal); O70.1 Second degree perineal laceration during delivery; Z37.0 Single live birth; Z3A.36 36 weeks gestation of pregnancy
CPT/HCPCS: 80307; 85025; 86703; 86900; 86901; 90715; 99285; J2590; J7120

== ENCOUNTER 2017-08-05 20:41 | Emergency (ER) | payer OTHER ==
[~2017-08-05] VITALS: Ht 165.1 cm; Wt 74.5 kg
[~2017-08-05 20:41] MED LIST changes: -DIPHTH/TETANUS/ACEL PERTUSSIS (BOOSTER) 0.5 ML VIAL/PFS IM ONE; +IBUP1TAB7 PO; -MEASLES, MUMPS, RUBELLA VACCINE 0.5 ML VIAL SQ ONE; +NORE0.354 PO; -ZOFR4TAB3 SL
[2017-08-05 23:35] VITALS: BP 139/98; PULSE 56; RESP 19; O2SAT 98
[2017-08-06 00:04] LABS: AUTOMATED NEUTROPHIL # 5.4 TH/MM3 (1.8-7.7); BASOPHIL # 0.1 TH/MM3 (0-0.2); BASOPHIL % 0.9 % (0.0-2.0); EOSINOPHIL # 0.2 TH/MM3 (0-0.4); EOSINOPHIL % 2.3 % (0.0-4.0); HEMATOCRIT 31.9 % (35.0-46.0); HEMOGLOBIN 11.4 GM/DL (11.6-15.3); LYMPH % 31.9 % (9.0-44.0); LYMPHOCYTE # 3.1 TH/MM3 (1.0-4.8); MEAN CELL VOLUME 86.2 FL (80.0-100.0); MEAN CORPUSCULAR HGB CONC 35.9 % (32.0-36.0); MEAN PLATELET VOLUME 8.6 FL (7.0-11.0); MONO % 9.1 % (0.0-8.0); MONOCYTE # 0.9 TH/MM3 (0-0.9); NEUT % 55.8 % (16.0-70.0); PLATELET COUNT 394 TH/MM3 (150-450); RED CELL DISTRIBUTION WIDTH 12.9 % (11.6-17.2); WHITE BLOOD COUNT 9.7 TH/MM3 (4.0-11.0)
[2017-08-06 00:15] LABS: PROTHROMBIN TIME - PATIENT 10.5 SEC (9.8-11.6)
[2017-08-06 00:27] LABS: ALBUMIN 3.2 GM/DL (3.4-5.0); AST (GOT) 23 U/L (15-37); BICARBONATE 24.2 MEQ/L (21.0-32.0); BLOOD UREA NITROGEN 18 MG/DL (7-18); CALCIUM 9.1 MG/DL (8.5-10.1); CHLORIDE 108 MEQ/L (98-107); CREATININE 0.64 MG/DL (0.50-1.00); GLOMERULAR FILTRATION RATE 117 ML/MIN (>89); GLUCOSE,RANDOM 76 MG/DL (74-106); SODIUM (NA) 142 MEQ/L (136-145)
[2017-08-06 00:28] LABS: ALT (GPT) 30 U/L (10-53)
[2017-08-06 00:32] LABS: ALKALINE PHOSPHATASE 111 U/L (45-117); TOTAL BILIRUBIN ADULT 0.4 MG/DL (0.2-1.0); TOTAL PROTEIN 7.5 GM/DL (6.4-8.2)
--- NOTE | 2017-08-06 01:59 | RADRPT ---
EXAM DATE: 08/06/2017 1:54 AM EDT AGE/SEX: 22 years / Female INDICATIONS: Vaginal bleeding post one week. CLINICAL DATA: This is the patient's initial encounter. Patient reports that signs and symptoms have been present for 1 day and indicates a pain score of 3/10. MEDICAL/SURGICAL HISTORY: . . COMPARISON: No prior [facility] exams available for comparison. No external comparison. MEASUREMENTS: Uterus:__16.4 x 9.3 x 7.3 Endometrial Stripe:__7 mm Right Ovary:__ . Left Ovary:__ 4.0 x 2.7 x 2.4 cm FINDINGS: Uterus: Small fluid and/or nonacute blood seen within the uterine cavity. No perceptible solid compo nent demonstrated. Right Ovary: Not visualized. Left Ovary: Measures Other: No free fluid. CONCLUSION: Generally within normal limits 1 week . Small fluid in the uterine cavity. No large retained products are demonstrated. Ovaries are within normal limits. Electronically signed by: Kevon Hurst MD 08/06/2017 1:57 AM EDT
--- NOTE | 2017-08-06 03:03 | PD ---
HPI Chief Complaint: [employer] Problem/Complaint Time Seen by Provider: 22:57 Travel History International Travel<30 days: No Contact w/Intl Traveler<30days: No Traveled to known affect area: No History of Present Illness HPI Patient is a 22-year-old female presents the emergency department 1 week with vaginal bleeding. She states that she had no bleeding other than the typical brownish discharge. Approximately 3 hours prior to arrival she passed a large clot and began to bleed profusely. She has gone through several pads in the last 3 hours. She has no other symptoms. She denies dizziness, fatigue, malaise or shortness of breath PFSH Past Medical History Medical History: Denies Significant Hx Diminished Hearing: No Tetanus Vaccination: < 5 Years Influenza Vaccination: No ?: Not LMP: 07/28/2017 Past Surgical History Surgical History: No Previous Surgery Social History Alcohol Use: No Tobacco Use: No Substance Use: No (hx marijaunia) Allergies-Medications (Allergen,Severity, Reaction): Coded Allergies: No Known Allergies (Unverified , 08/05/17) Reported Meds & Prescriptions Reported Meds & Active Scripts Active Norethindrone 35 (Norethindrone) 0.35 Mg Tab 1 Tab PO DAILY Ibuprofen 800 Mg Tab 800 Mg PO Q8H PRN Reported Celexa (Citalopram Hydrobromide) 20 Mg Tab 25 Mg PO DAILY ( Vit-Ferrous Fumarate) 27 Mg Iron-1 Mg Tab 1 Tab PO DAILY Review of Systems Except as stated in HPI: all other systems reviewed are Neg HENT: No: Lightheadedness Cardiovascular: No: Chest Pain or Discomfort Respiratory: No: Shortness of Breath Genitourinary: Positive: Vaginal Bleeding Neurologic: No: Weakness, Dizziness Physical Exam Narrative GENERAL: 22-year-old female in no distress but concerned SKIN: Focused skin assessment warm/dry. HEAD: Atraumatic. Normocephalic. EYES: Pupils equal and round. No scleral icterus. No injection or drainage. ENT: No nasal bleeding or discharge. Mucous membranes pink and moist. NECK: Trachea midline. No JVD. CARDIOVASCULAR: Regular rate and rhythm. No murmur appreciated. RESPIRATORY: No accessory muscle use. Clear to auscultation. Breath sounds equal bilaterally. GASTROINTESTINAL: Abdomen soft, non-tender, nondistended. Hepatic and splenic margins not palpable. MUSCULOSKELETAL: No obvious deformities. No clubbing. No cyanosis. No edema. VAGINAL EXAM: Leo blood from vagina, red with clots Data Data Last Documented VS Vital Signs Date Time Temp Pulse Resp B/P (MAP) Pulse Ox O2 Delivery O2 Flow Rate FiO2 08/05/17 23:35 56 19 139/98 (112) 98 Room Air Orders Orders Complete Blood Count With Diff (08/05/17 23:02) Comprehensive Metabolic Panel (08/05/17 23:02) Act Partial Throm Time (Ptt) (08/05/17 23:02) Prothrombin Time / Inr (Pt) (08/05/17 23:02) Beta Hcg (Quant/Titer) (08/05/17 23:02) Type And Screen (08/05/17 23:02) Us Pelvis Comp [employer]/Non-Preg (08/06/17 ) Ed Discharge Order (08/06/17 04:45) Labs Laboratory Tests Test 08/05/17 23:10 White Blood Count 9.7 TH/MM3 Red Blood Count 3.70 MIL/MM3 Hemoglobin 11.4 GM/DL Hematocrit 31.9 % Mean Corpuscular Volume 86.2 FL Mean Corpuscular Hemoglobin 31.0 PG Mean Corpuscular Hemoglobin Concent 35.9 % Red Cell Distribution Width 12.9 % Platelet Count 394 TH/MM3 Mean Platelet Volume 8.6 FL Neutrophils (%) (Auto) 55.8 % Lymphocytes (%) (Auto) 31.9 % Monocytes (%) (Auto) 9.1 % Eosinophils (%) (Auto) 2.3 % Basophils (%) (Auto) 0.9 % Neutrophils # (Auto) 5.4 TH/MM3 Lymphocytes # (Auto) 3.1 TH/MM3 Monocytes # (Auto) 0.9 TH/MM3 Eosinophils # (Auto) 0.2 TH/MM3 Basophils # (Auto) 0.1 TH/MM3 CBC Comment DIFF FINAL Differential Comment Prothrombin Time 10.5 SEC Prothromb Time International Ratio 1.0 RATIO Activated Partial Thromboplast Time 28.0 SEC Blood Urea Nitrogen 18 MG/DL Creatinine 0.64 MG/DL Random Glucose 76 MG/DL Total Protein 7.5 GM/DL Albumin 3.2 GM/DL Calcium Level 9.1 MG/DL Alkaline Phosphatase 111 U/L Aspartate Amino Transf (AST/SGOT) 23 U/L Alanine Aminotransferase (ALT/SGPT) 30 U/L Total Bilirubin 0.4 MG/DL Sodium Level 142 MEQ/L Potassium Level 3.8 MEQ/L Chloride Level 108 MEQ/L Carbon Dioxide Level 24.2 MEQ/L Anion Gap 10 MEQ/L Estimat Glomerular Filtration Rate 117 ML/MIN Human Chorionic Gonadotropin, Quant 94 MIU/ML MDM Medical Decision Making Medical Screen Exam Complete: Yes Emergency Medical Condition: Yes Differential Diagnosis retained products, endometritis Narrative Course patient seen and evaluated in the ER. [employer] consulted and did see the patient in the ER (see consult) Her H&H was normal. Her ultrasound demonstrated no evidence of retained products. She was discharged home Diagnosis Primary Impression: care following vaginal delivery Additional Impression: Vaginal bleeding Patient Instructions: General Instructions, Bleeding (DC) Disposition: 01 DISCHARGE HOME Condition: Chris Shah DO August 06, 2017 03:03
== END 2017-08-06 06:26 | disposition home or self-care (01) ==
LOC: NEPC 20:41
DX: O72.1 Other immediate postpartum hemorrhage (principal)
CPT/HCPCS: 76856; 80053; 84702; 85025; 85610; 85730; 86850; 86900; 86901; 99284